=== PATIENT | female | born 1960 | race Caucasian/White ===

== ENCOUNTER 2020-12-17 11:14 | Emergency (ER) | payer OTHER ==
[~2020-12-17 11:14] MED LIST: ELIQUIS2.5 MG PO; NORCO 7.5-3251 EACH PO; OMEPRAZOLE40 MG PO; SINGULAIR10 MG PO; SYNTHROID150 MCG PO; THERAGRAN M TAB1 EA PO; ULTRAM50 MG PO; VENTOLIN HFA 66.7 GM INH; VITAMIN D35000 UNI1 PO
[2020-12-17 11:58] LABS: HEMOGLOBIN 13.3 gm/dl (12.3-15.3); RED BLOOD COUNT 4.82 M/UL (4.00-5.10)
[2020-12-17 12:22] LABS: BUN/CREATININE RATIO 12 (0-10)
== END 2020-12-17 18:01 | disposition home or self-care (01) ==
LOC: ER1 11:14
PROVIDERS: Physician Assistant
DX: R07.89 Other chest pain (principal); I10 Essential (primary) hypertension; E66.9 Obesity, unspecified; Z86.711 Personal history of pulmonary embolism; Z88.8 Allergy status to other drugs, medicaments and biological substances
CPT/HCPCS: 71045; 80053; 82550; 82553; 83874; 84484; 85025; 85379; 93005; 99285; Q9967